=== PATIENT | female | born 1985 | race African-American/Black ===

== ENCOUNTER 2021-02-03 00:19 | Emergency (ER) | payer MEDICAID ==
[~2021-02-03] VITALS: Ht 165.1 cm; Wt 98.4 kg
[~2021-02-03 00:19] MED LIST: CEPH-568 PO; FAMO20TA8 PO
[2021-02-03 00:36] VITALS: BP_SYST 116
[2021-02-03] MEDS: KETOROLAC TROMETHAMINE 30 MG VIAL IVP ONE (02:15)
[2021-02-03 02:20] LABS: BASOPHILS % (AUTO) 0.4 % (0.0-2.0); EOSINOPHILS # (AUTO) 0.1 K/uL (0.0-0.4); EOSINOPHILS % (AUTO) 1.3 % (0.0-4.0); HEMATOCRIT 24.8 % (36-48); HEMOGLOBIN 7.4 g/dL (12.0-16.0); LYMPHOCYTES # (AUTO) 3.3 K/uL (1.0-5.5); LYMPHOCYTES % (AUTO) 29.6 % (20.5-51.5); MEAN CORPUSCULAR HEMOGLOBIN 20 pg (27-31); MEAN CORPUSCULAR HGB CONC 30 % (32-36); MEAN CORPUSCULAR VOLUME 68 fL (79.0-98.0); MONOCYTES % (AUTO) 8.8 % (1.7-9.3); NEUTROPHILS # (AUTO) 6.6 K/uL (1.8-7.7); NEUTROPHILS % (AUTO) 59.9 % (40.0-70.0); PLATELET COUNT (AUTO) 337 K/uL (130-430); RED BLOOD CELL COUNT(AUTO) 3.67 MIL/uL (4.2-6.2); RED CELL DISTRIBUTION WIDTH 22.4 % (9.0-15.0); WHITE BLOOD COUNT (AUTO) 11.1 K/uL (4.8-10.8)
[2021-02-03 02:28] LABS: CALCIUM 8.4 mg/dL (8.4-11.0); CREATININE 0.79 mg/dL (0.55-1.30); POTASSIUM 3.8 mmol/L (3.5-5.1)
[2021-02-03 02:33] LABS: ALBUMIN 3.4 g/dL (3.4-4.8); TOTAL BILIRUBIN 0.2 mg/dL (0.0-1.0)
[2021-02-03] MEDS ORDERED: IBUP-1969 PO (03:19)
[2021-02-03 03:47] VITALS: BP_SYST 116
== END 2021-02-03 03:47 | disposition home or self-care (01) ==
LOC: SED 00:19
DX: S00.83XA Contusion of other part of head, initial encounter (principal); R55 Syncope and collapse; D64.9 Anemia, unspecified; M25.562 Pain in left knee; I95.9 Hypotension, unspecified; W18.39XA Other fall on same level, initial encounter; Y93.89 Activity, other specified; Y92.89 Other specified places as the place of occurrence of the external cause; Y99.8 Other external cause status
CPT/HCPCS: 36415; 73564; 80053; 85025; 86886; 86900; 86901; 93005; 96374; 99285; J1885

== ENCOUNTER 2023-03-16 13:33 | Emergency (ER) | payer MEDICAID ==
[~2023-03-16] VITALS: Ht 165.1 cm; Wt 89.8 kg
[~2023-03-16 13:33] MED LIST changes: +IBUP-1969 PO
[2023-03-16 13:45] VITALS: BP_SYST 114; PULSE 80; RESP 19; TEMP 97; O2SAT 100
--- NOTE | 2023-03-16 13:45 | NUR ---
Patient to ER bed 05 to gown for evaluation. Side rails up. Report given to YESI HARRIS.
--- NOTE | 2023-03-16 14:02 | NUR ---
DR DAVIS IN ROOM FOR EXAM
[2023-03-16] MEDS ORDERED: FLUC200T PO (15:06)
[2023-03-16 15:28] VITALS: BP_SYST 114; PULSE 80; RESP 19; TEMP 97; O2SAT 100
--- NOTE | 2023-03-16 15:29 | NUR ---
Patient given written and verbal discharge instructions and verbalizes understanding. ER MD discussed with patient the results and treatment provided. Patient in stable condition. ID arm band removed. IV catheter removed intact and dressing applied, no active bleeding. Rx of DIFLUCAN given. Patient educated on pain management and to follow up with PMD. Pain Scale 0/10. Opportunity for questions provided and answered. Medication side effect fact sheet provided.
== END 2023-03-16 15:29 | disposition home or self-care (01) ==
LOC: SED 13:33
DX: B35.4 Tinea corporis (principal); R21 Rash and other nonspecific skin eruption; Z88.1 Allergy status to other antibiotic agents; Z91.040 Latex allergy status; Z79.899 Other long term (current) drug therapy
CPT/HCPCS: 99283